=== PATIENT | female | born 1980 | race Hispanic/Latino ===

== ENCOUNTER 2023-07-11 21:55 | Emergency (ER) | payer BC ==
[~2023-07-11] VITALS: Ht 152.4 cm; Wt 79.4 kg
[~2023-07-11 21:55] MED LIST: TRAM50TA2 PO
[2023-07-11] MEDS ORDERED: CYCLOBENZAPRINE HCL 10 MG TABLET PO ONE (22:30)
[2023-07-11] MEDS ORDERED: IBUPROFEN 800 MG TAB PO ONE (22:30)
[2023-07-11] MEDS ORDERED: CYCL-309 PO (23:02)
[2023-07-11] MEDS ORDERED: IBUP-1493 PO (23:02)
[2023-07-12] VITALS: BP 126/69; PULSE 76; RESP 18; O2SAT 99
== END 2023-07-12 00:01 | disposition home or self-care (01) ==
LOC: EDH 21:55
DX: S70.01XA Contusion of right hip, initial encounter (principal); M54.50 Low back pain, unspecified; W18.39XA Other fall on same level, initial encounter; Y93.89 Activity, other specified; Y92.89 Other specified places as the place of occurrence of the external cause; Y99.8 Other external cause status
CPT/HCPCS: 72100; 72190